=== PATIENT | male | born 1965 | race Caucasian/White ===

== ENCOUNTER 2018-07-11 16:06 | Emergency (ER) | payer MEDICAID, MEDICARE ==
[~2018-07-11] VITALS: Wt 88.5 kg
[~2018-07-11 16:06] MED LIST: ASPI-831 PO; DICL100T PO; DICL50TA11 PO
[2018-07-11 16:08] VITALS: BP 135/85; PULSE 85; RESP 18
== END 2018-07-11 17:08 | disposition left against medical advice (07) ==
LOC: FTE 16:06
DX: Z53.21 Procedure and treatment not carried out due to patient leaving prior to being seen by health care provider (principal)